=== PATIENT | male | born 1940 | race Caucasian/White ===

== ENCOUNTER → 2016-12-08 | Outpatient (CLI) | payer OTHER ==
[~2016-12-08] VITALS: Ht 175.3 cm; Wt 116.6 kg
[~2016-12-08] MED LIST: BAYER CHEWABLE81 MG PO; FISH OIL 1,001000 M2 PO; FLOMAX0.4 MG PO; HYDROCODONE-AP1 EAC6 PO; LISINOPRIL20 MG PO; LOPRESSOR25 PO; METHADONE HCL5 MG PO; MOBIC7.5 MG PO; NEURONTIN600 MG PO; NORCO 10-325 T1 EACH PO; ZOLOFT100 MG PO
--- NOTE | ~2016-12-08 | HPC ---
[facility] [address] [place] [address] PAIN MANAGEMENT CONSULTATION Name: SOY ROUSE Room #: REG CLAyana Chopra.#: [id number] Admission: 12/08/16 Attend Phys: Ian Nguyễn MD Discharge: Date of : 40 Report #: [id number] THIS REPORT FOR: //name// CC: ANTIONE Nguyễn DATE OF SERVICE: 12/08/2016 CHIEF COMPLAINT: Low back pain with radiation into both legs HISTORY OF PRESENT ILLNESS: I am seeing Soy today for chronic pain. He has also seen my partner, Dr. Alvarado in the past. In fact, in 2017, he underwent a trial for spinal stimulation, which failed. I see the patient's brother and because of our close relationship, he has asked that I see him today for his current pain. He describes his pain as low back radiating into the left leg and groin, also pain radiating in the upper right leg that is constant, continuous, aching, pulling and on a day-to-day basis it varies between 6 at the lowest and 9 at the highest on the intensity scale between 0 and 10. Pain has gotten to the point where it is really limiting his activities, gained over 40 pounds in the last 2 years and he is discouraged. He is hopeful that we may have some suggestions, but he came in quite pessimistic and assuming that it would be not much that we had to offer. MEDICATIONS: Tamsulosin, gabapentin, meloxicam, sertraline, fish oil, stool softener, aspirin and he takes hydrocodone 10 mg about every 4 hours. ALLERGIES: None. PAST MEDICAL AND SURGICAL HISTORY: Remarkable for two previous back surgeries and neck fusion. Medical record from his primary care physician says that he has got a fusion, but he reported that it was just a decompression. I had him get under the fluoroscope resolve the issue and it is true he has had fairly significant bilateral decompression laminectomies at L3, L4 and L5. This apparently occurred on two occasions and he continues to have back pain and leg pain. He has had surgery on his right shoulder, ribs, spine, both hands, and appendicitis. Medically, he is treated for hypertension. He is morbidly obese. SOCIAL HISTORY: Worked in ____ since retired. He is . He denies use of tobacco. He drinks alcohol, a few beers a week. REVIEW OF SYSTEMS: Completed. He complains of weight gain, fatigue, weakness, blurred vision, hearing loss, shortness of breath, dyspnea on exertion and palpitation . He has chronic constipation, frequent urination, nocturia, change in force of stream and sexual difficulties. On psychiatric, he complains of some memory loss, recent and depression. [facility] [address] [place] [address] PAIN MANAGEMENT CONSULTATION Name: NASIMSOY Laurie Room #: REG CL Abelardo#: [id number] Admission: 12/08/16 Attend Phys: Ian Nguyễn MD Discharge: Date of : 40 Report #: [id number] PHYSICAL EXAMINATION: GENERAL: He is pleasant, but discouraged 76-year-old karen. He is able to move from sitting to standing position independently, but walks with antalgic features. HEENT: Normal. NECK: Supple. CHEST: Clear. CARDIAC: Rhythm is regular. MUSCULOSKELETAL: Examination of the spine reveals a tender scar that extends approximately 6 inches from the mid lumbar region down into the sacral. Straight leg raising bilaterally is positive for pain. He has decreased sensation around the L4-L5 and L5-S1 distribution. Deep tendon reflexes and strength in lower extremity are all diminished. GENITOURINARY: He complains that his penis is shrinking and his scrotum is enlarging. He does not have any edema and this was examined. I did not do a rectal. His last PSA was 0.7. 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 RECOMMENDATIONS: He has failed a trial of spinal cord stimulation. We did discuss the intrathecal pump. His brother Emmanuel has one and this has been helpful for Emmanuel. He is not really interested in implantable device. We did discuss the possibility of trialing methadone, which successfully for baseline pain control in many patients. It is a trial, which we start low and go slow and work the dose up. I have discussed methadone as an excellent pain reliever for a select group of patients with post-laminectomy syndrome and we have good experience within our clinic. We can manage this for him under an opioid agreement. He is willing to trial it. We talked about the constipating side effects and I discussed the use of methadone in pain relieving fashion rather than just simply to treated addiction as many people recognize. We began his dose very low at 2.5 mg b.i.d. He can continue to take his hydrocodone for breakthrough. I would like to see him back in 2-3 weeks and plan to carefully titrate his dose. At some point in time if he would like to learn more about intrathecal therapies, I would be glad to provide that for him. He was discharged with a followup appointment. By: [id number] Ian Nguyễn MD /nt
[2016-12-08 12:53] VITALS: BP 159/84
== END ==
LOC: PAIN 06:35
DX: M54.5 Low back pain (principal); Z79.82 Long term (current) use of aspirin; M96.1 Postlaminectomy syndrome, not elsewhere classified

== ENCOUNTER → 2017-01-05 | Outpatient (CLI) | payer OTHER ==
[~2017-01-05] VITALS: Ht 175.3 cm; Wt 116.5 kg
[~2017-01-05] MED LIST changes: +DOLOPHINE HCL5 MG PO
--- NOTE | ~2017-01-05 | HPC ---
[facility] [place] [address] PAIN MANAGEMENT CONSULTATION Name: NASIMSOY Laurie Room #: REG BUTCH Chopra.#: [id number] Admission: 01/05/17 Attend Phys: Ian Nguyễn MD Discharge: Date of : 40 Report #: [id number] THIS REPORT FOR: //name// CC: ANTIONE Nguyễn DATE OF SERVICE: 01/05/2017 Followup visit for post-laminectomy syndrome with severe radiculopathy. The patient returns to pain clinic today and is still in significant pain. He uses a walker and is making harder and harder for him to get around. The degree of pain he has is high, scoring this pain today as 9/10 despite the use of the opioids provided. He is on very low dose of methadone, which we initiated at last visit. He says that he is really finding life not worth living. He is not suicidal, but he said he would not be disappointed in his own because the pain is so limiting and so severe. He reports that he has always been independent and able to get around. The fact that he is so limited now is sad for him. He cannot fish with his brother. He cannot get out on the ham like he used to and he is not able to do many of the things that he could do for himself. We talked about ways to managing his pain. He might be a candidate for an intrathecal pump. He failed the spinal cord stimulator. I would like to see if we can maximize his use of oral medication to see some relief early on with a small dose of methadone. I would like to increase the dose gradually over the course of next few months and see if we can find a dose that is satisfactory for him. The use of an intrathecal pump is helpful for many patients, but certainly increases the complexity and cost of his care. He understands that there is an opioid crisis at hand and it is critical that he maintain his medication carefully under terms of our agreement. He has agreed to do so. We reviewed that agreement in detail today. We talked about the social and psychological effects that occur with chronic intractable pain. There is no question that he is developing depression. He is already on an antidepressant sertraline. We talked about changing that medication, but I do not think we will today. I might change him from an SSRI to mirtazapine, which would also have some sedating effects and will help him sleep at night, which is an additional problem. PHYSICAL EXAMINATION: He is a bit angry today at his condition and depressed. Blood pressure 139/80, heart rate 80. BMI is 37.9. He is able to move from sitting to standing position, walks with slow steps using a rolling walker. He has tenderness across his back in the area of the scar. He has limited range of [facility] [address] [place] [address] PAIN MANAGEMENT CONSULTATION Name: SOY ROUSE Room #: REG [facility] Abelardo#: [id number] Admission: 01/05/17 Attend Phys: Ian Nguyễn MD Discharge: Date of : 40 Report #: [id number] motion with pain across his back. Straight leg raising bilaterally is positive with decreased sensation in the lower extremity and weakness in generalized distribution. IMPRESSION: 1. Chronic intractable back pain, post-laminectomy syndrome with radiculopathy. 2. Management of high risk medications. 3. History of abdominal aortic aneurysm, under observation. 4. Bilateral knee pain, osteoarthritis. PLAN: 1. Follow up in the pain clinic in one month. 2. Increase methadone to 5 mg t.i.d. 3. Safeguard all medications under terms of our agreement. We will determine whether or not he is a candidate to increase his dose slowly at next visit. By: [id number] Ian Nguyễn MD /nt
[2017-01-05 10:30] VITALS: BP 139/80
== END | disposition home or self-care (01) ==
LOC: PAIN 06:51
DX: M54.16 Radiculopathy, lumbar region (principal); M96.1 Postlaminectomy syndrome, not elsewhere classified; M17.0 Bilateral primary osteoarthritis of knee; F11.20 Opioid dependence, uncomplicated; Z86.79 Personal history of other diseases of the circulatory system; Z88.8 Allergy status to other drugs, medicaments and biological substances; Z79.82 Long term (current) use of aspirin; Z98.890 Other specified postprocedural states

== ENCOUNTER → 2017-02-02 | Outpatient (CLI) | payer OTHER ==
[~2017-02-02] VITALS: Ht 175.3 cm; Wt 112.6 kg
--- NOTE | ~2017-02-02 | EKG ---
[address] [address] ELECTROCARDIOGRAM REPORT Name: SOY ROUSE Room #: REG CL Abelardo#: [id number] Admission: 02/02/17 Attend Phys: Ian Nguyễn MD Discharge: Date of : 40 Report #: [id number] THIS REPORT FOR: //name// [facility] Test Date: 2017-02-02 Test Time: 11:34:00 Pat Name: SOY ROUSE Department: Room: Gender: Senior [employer] Agent: Candice JOHNSON : 1940 Requested By: Ian Nguyễn Order Number: [id number] MD: Mendez Chu Measurements Intervals Carlock Rate: 58 P: 27 AR: 208 QRS: 8 QRSD: 104 T: 60 QT: 405 QTc: 398 Interpretive Statements Sinus rhythm No significant abnormality No previous ECG available for comparison Electronically Signed On 02-03-2017 7:37:30 CDT by Mendez Chu [email or web address] <ELECTRONICALLY SIGNED> By: Mendez Chu MD, [facility] 02/03/17 0737 [id number] Mendez Chu MD, FAC /EPI
[2017-02-02 10:06] VITALS: BP 157/84
== END | disposition home or self-care (01) ==
LOC: PAIN 06:49
DX: M54.16 Radiculopathy, lumbar region (principal); G89.29 Other chronic pain; F11.20 Opioid dependence, uncomplicated; F32.89 Other specified depressive episodes; E66.8 Other obesity; Z88.8 Allergy status to other drugs, medicaments and biological substances; Z98.890 Other specified postprocedural states; Z79.82 Long term (current) use of aspirin

== ENCOUNTER → 2017-04-06 | Outpatient (CLI) | payer OTHER ==
[~2017-04-06] VITALS: Ht 175.3 cm; Wt 110.3 kg
[~2017-04-06] MED LIST changes: +HYDROCODON-ACE1 EAC5 PO
--- NOTE | ~2017-04-06 | HPC ---
[facility] [place] [address] PAIN MANAGEMENT CONSULTATION Name: SOY ROUSE Room #: REG DELMYAyana Chopra.#: [id number] Admission: 04/06/17 Attend Phys: Ian Nguyễn MD Discharge: Date of : 40 Report #: [id number] THIS REPORT FOR: //name// CC: ANTIONE Nguyễn DATE OF SERVICE: 04/06/2017 DATE OF REGISTRATION: 04/06/2017 Followup visit for chronic back pain with radiculopathy. The patient returns to pain clinic today for a 25-minute consultation. He continues to be very straight forward in his discussions about pain and depression. He says that his only reason he is here is to help take care of his . He is discouraged by his continuing decline, although he does not seem quite as depressed as he did at last visit. He was counseled extensively at last visit and I spent time with him again today discussing hopefulness and options that we have available to help improve his quality of life through treatment of pain and improvement of function. He is grateful for the methadone, which we initiated and he is tolerating it well. I think it has done a lot to help the biological component of pain. This has made his mood slightly better than before. At one point, he was seriously threatening suicide. I have provided him with small amount of Schriever, which he can use for breakthrough pain. We have talked about physical strengthening and he is agreeable to physical therapy. MEDICATIONS: Methadone 5 mg t.i.d. under terms of an opioid agreement, Zoloft 100 mg daily, fish oil, Neurontin 600 mg 4 times daily, meloxicam 7.5 mg b.i.d., and Flomax. ALLERGIES: ATORVASTATIN. PAST MEDICAL HISTORY: Significant for 3 lumbar surgeries between 2010 and 2014. PHYSICAL EXAMINATION: VITAL SIGNS: His blood pressure is 146/78, heart rate 60, respirations 16, BMI is 35.9. He is in a scooter today. MUSCULOSKELETAL: He is able to move from sitting to standing position, but weak and has difficulty walking even short distances. Pain increases fairly dramatically with standing and weightbearing. Straight leg raising is bilaterally, positive radiating into the left leg, left groin and upper right [address] [address] PAIN MANAGEMENT CONSULTATION Name: SOY ROUSE Room #: REG [facility].#: [id number] Admission: 04/06/17 Attend Phys: Ian Nguyễn MD Discharge: Date of : 40 Report #: [id number] leg. Sensation is intact. IMPRESSION: 1. Low back pain with radiculopathy, status post multiple back surgeries. 2. Management of high risk medications under terms of an opioid agreement. 3. History of severe depression. He seems to be a bit better and more stable now. He is not a suicide risk I believe at this time due to his devotion to his . 4. Morbid obesity. PLAN: 1. I have sent him to physical therapy for a home program one session per week for 6 weeks. Diagnosis post-laminectomy syndrome with radiculopathy and chronic pain. 2. Continue methadone and oxycodone as well as coanalgesic gabapentin and antidepressants. 3. Continue positive counseling and behavioral modification recommendations. 4. Follow up in the pain clinic in 3 months. By: [id number] Ian Nguyễn MD /nt
[2017-04-06 13:07] VITALS: BP 146/78
== END | disposition home or self-care (01) ==
LOC: PAIN 07:19
DX: Z76.0 Encounter for issue of repeat prescription (principal); G89.29 Other chronic pain; M54.16 Radiculopathy, lumbar region; M96.1 Postlaminectomy syndrome, not elsewhere classified; E66.01 Morbid (severe) obesity due to excess calories; F32.89 Other specified depressive episodes; Z79.891 Long term (current) use of opiate analgesic; Z98.890 Other specified postprocedural states; Z68.35 Body mass index [BMI] 35.0-35.9, adult; Z88.1 Allergy status to other antibiotic agents; Z79.82 Long term (current) use of aspirin